=== PATIENT | female | born 1995 | race Caucasian/White ===

== ENCOUNTER 2018-01-05 13:27 | Emergency (ER) | payer MEDICAID ==
[~2018-01-05] VITALS: Ht 160 cm; Wt 88.6 kg
[2018-01-05] MEDS ORDERED: LIDOCAINE 1% 10 ML VIAL INJ ONE (15:00)
[2018-01-05] MEDS ORDERED: BACITRACIN 0.9 GM PACKET OINTMENT TP ONE (15:00)
[2018-01-05 15:06] VITALS: BP 110/71
== END 2018-01-05 16:16 | disposition home or self-care (01) ==
LOC: EMS 13:28
DX: S71.111A Laceration without foreign body, right thigh, initial encounter (principal); W27.8XXA Contact with other nonpowered hand tool, initial encounter; Y93.89 Activity, other specified; Y92.89 Other specified places as the place of occurrence of the external cause; Y99.0 Civilian activity done for income or pay
CPT/HCPCS: 12002; 99283; J3490

== ENCOUNTER 2018-01-11 16:01 | Emergency (ER) | payer MEDICAID ==
[~2018-01-11] VITALS: Ht 160 cm; Wt 88.6 kg
[2018-01-11 16:33] VITALS: BP 142/89
[2018-01-11] MEDS ORDERED: BACITRACIN 0.9 GM PACKET OINTMENT TP ONE (16:45)
== END 2018-01-11 16:49 | disposition home or self-care (01) ==
LOC: EMS 16:02
DX: S71.111D Laceration without foreign body, right thigh, subsequent encounter (principal); Z48.02 Encounter for removal of sutures; X58.XXXD Exposure to other specified factors, subsequent encounter

== ENCOUNTER 2018-01-16 14:41 | Emergency (ER) | payer MEDICAID ==
[~2018-01-16] VITALS: Ht 160 cm; Wt 97.5 kg
[2018-01-16 14:42] VITALS: BP 112/70
== END 2018-01-16 16:27 | disposition home or self-care (01) ==
LOC: EMS 14:41
DX: S71.111D Laceration without foreign body, right thigh, subsequent encounter (principal); X58.XXXD Exposure to other specified factors, subsequent encounter